=== PATIENT | female | born 2000 | race Caucasian/White ===

== ENCOUNTER 2020-10-19 15:20 | Outpatient (CLI) | payer BC ==
--- NOTE | 2020-10-19 15:53 | RAD ---
RADIOGRAPH RIGHT HAND 3VIEWS: DATE: 10/19/2020 HISTORY: 20-year-old female with swelling and blisters of the right hand. FINDINGS: There is no evidence of fracture or dislocation. There is no evidence of periostitis, permeative lesi on, osteolytic lesion, or osteoblastic lesion. The joint spaces are maintained without erosions or significant osteophytes. The fifth metacarpal is very short. There is no subcutaneous emphysema or so ft tissue calcification. IMPRESSION: 1) dysplasia of fifth metacarpal. 2) otherwise negative
== END 2020-10-19 15:21 | disposition home or self-care (01) ==
LOC: BICRAD 15:20
DX: R22.31 Localized swelling, mass and lump, right upper limb (principal); Q74.0 Other congenital malformations of upper limb(s), including shoulder girdle